=== PATIENT | male | born 1980 | race African-American/Black ===

== ENCOUNTER 2022-01-12 01:56 | Emergency (ER) | payer OTHER ==
[2022-01-12 02:15] VITALS: BP 158/105; PULSE 110; RESP 20; BMI 40.4
== END 2022-01-12 04:45 | disposition home or self-care (01) ==
LOC: JER 01:56
DX: S00.81XA Abrasion of other part of head, initial encounter (principal); Y00.XXXA Assault by blunt object, initial encounter
CPT/HCPCS: 99283-25